=== PATIENT | male | born 1960 | race Caucasian/White ===

== ENCOUNTER 2018-09-23 07:35 | Outpatient (CLI) | payer OTHER ==
--- NOTE | 2018-09-23 11:02 | NM ---
NM Cardiac Stress W EF WF History: [Chest pain] Comparison: None. Findings: Stress and rest performed after the intravenous administration of 31.5 and 11 mCi Tc 99m se stamibi, respectively. Adequate left ventricular uptake of radiotracer. No scar or ischemia. Normal wall motion. Calculated ejection fraction is 66%. Impression: Normal nuclear medicine cardiac stress test and ejection fraction.
== END 2018-09-23 07:36 | disposition home or self-care (01) ==
LOC: NM 07:35
PROVIDERS: ATTEND Family Medicine
DX: R07.89 Other chest pain (principal); I71.9 Aortic aneurysm of unspecified site, without rupture
CPT/HCPCS: 78452; 93017; A9500